=== PATIENT | female | born 1990 | race Caucasian/White ===

== ENCOUNTER 2017-07-01 14:10 | Emergency (ER) | payer BC, OTHER ==
[2017-07-01 14:20] VITALS: BP 149/89; PULSE 89; RESP 18; TEMP 97.8
[2017-07-01] MEDS ORDERED: Acetaminophen-Codeine 300-30mg TAB PO STA (14:22)
[2017-07-01] MEDS ORDERED: IBUPROFEN 600 MG TAB PO STA (14:22)
--- NOTE | 2017-07-01 14:22 | ED ---
Upper Extremity HPI - General Chief Complaint: Extremity Injury, Upper Stated Complaint: shoulder pain Time Seen by Provider: 07/01/17 14:14 Source: patient Mode of arrival: ambulatory Limitations: no limitations - History of Present Illness Initial Comments: 26-year-old female patient presents to emergency department today for evaluation of right shoulder pain. The patient states that approximately 1 hour prior to arrival she was toweling off after a shower when she felt her right shoulder partially dislocate. Patient states that she has had this happen to her numerous times in the past. She states this has happened at least once per year since 2008. She states that she was able to get the shoulder back in place on her own however it doesn't feel stable or normal. She is currently rating her pain at a 9 out of 10 on the pain scale. She denies any numbness or tingling to the arm or hand. Patient denies any headache , neck pain, back pain, chest pain, shortness of breath, dizziness, weakness, abdominal pain, nausea, vomiting, or difficulties with bowel movements or urination. - Related Data Allergies Allergy/AdvReac Type Severity Reaction Status Date / Time Penicillins Allergy Unknown Verified 07/01/17 14:29 Review of Systems ROS Statement: Those systems with pertinent positive or pertinent negative responses have been documented in the HPI. ROS Other: All systems not noted in ROS Statement are negative. Past Medical History Past Medical History: No Reported History History of Any Multi-Drug Resistant Organisms: None Reported Additional Past Surgical History / Comment(s): right shoulder repair Past Psychological History: No Psychological Hx Reported Smoking Status: Current every day smoker Past Alcohol Use History: None Reported Past Drug Use History: None Reported General Exam Limitations: no limitations General appearance: alert, in no apparent distress, other (This is a well- developed, well-nourished adult female patient in no acute distress. Vital signs upon presentation her temperature 97.8F, pulse 89, respirations 18, blood pressure 149/89, pulse ox 97% on room air.) Neck exam: Present: normal inspection, full ROM. Absent: tenderness, meningismus, lymphadenopathy Respiratory exam: Present: normal lung sounds bilaterally. Absent: respiratory distress, wheezes, rales, rhonchi, stridor Cardiovascular Exam: Present: regular rate, normal rhythm, normal heart sounds. Absent: systolic murmur, diastolic murmur, rubs, gallop, clicks Extremities exam: Present: normal inspection, full ROM, normal capillary refill , other (Skin to right shoulder is pink, warm, and dry. No obvious deformity. Skin to the right arm is pink, warm, and dry. Cap refill less than 3 seconds. Radial pulses 2+ and equal bilaterally.). Absent: tenderness, pedal edema, joint swelling, calf tenderness Back exam: Present: normal inspection. Absent: tenderness Neurological exam: Present: alert, oriented X3, CN II-XII intact Psychiatric exam: Present: normal affect, normal mood Skin exam: Present: warm, dry, intact, normal color. Absent: rash Course Vital Signs 07/01/17 14:17 Temperature 97.8 F Pulse Rate 89 Respiratory 18 Rate Blood Pressure 149/89 O2 Sat by Pulse 97 Oximetry Medical Decision Making - Medical Decision Making 26-year-old female patient presented to emergency department today after she dislocated her right shoulder. Patient states that she was able to get the shoulder back into place however continued to have pain. She states that the joint felt unstable. Physical exam is unremarkable. Joint spaces appear normal to palpation. X-ray showed no acute fracture or dislocation. Patient does have full range of motion of the shoulder however we will place her in a sling and have her follow-up with orthopedics for further evaluation. She is instructed to take ibuprofen and Tylenol for pain control. She is instructed to return here immediately for any new, worsening, or concerning symptoms. She verbalizes understanding and agrees with this plan. - Radiology Data Radiology results: report reviewed, image reviewed 3 views of the right shoulder are obtained and show no acute fracture or dislocation. The acromioclavicular and glenohumeral joint spaces appear within normal limits. The visualized ribs are intact and unremarkable. Impression by Dr. Anderson states no acute fracture or dislocation. Disposition Clinical Impression: Shoulder pain Disposition: HOME SELF-CARE Condition: Good Instructions: Shoulder Dislocation (ED) Additional Instructions: Wear splint until follow-up with orthopedics. Follow up with orthopedic physician for recheck in 1-2 days. Return here immediately for any new, worsening, or concerning symptoms. Referrals: Jami Gloria MD [Primary Care Provider] - 1-2 days Víctor Marie MD [STAFF PHYSICIAN] - 1-2 days Time of Disposition: 15:28
--- NOTE | 2017-07-01 14:57 | XR ---
EXAMINATION TYPE: XR shoulder complete RT DATE OF EXAM: 07/01/2017 CLINICAL HISTORY: pain TECHNIQUE: Three views of the right shoulder are obtained. COMPARISON: None FINDINGS: There is no acute fracture/dislocation evident. The acromioclavicular and glenohumeral gayle int spaces appear within normal limits. The visualized ribs are intact and unremarkable. IMPRESSION: 1. There is no acute fracture or dislocation. ICD 10 NO FRACTURE, INITIAL EVALUATION
== END 2017-07-01 15:40 | disposition home or self-care (01) ==
LOC: EC 14:10
DX: M25.511 Pain in right shoulder (principal); F17.200 Nicotine dependence, unspecified, uncomplicated; Z88.0 Allergy status to penicillin; Z98.890 Other specified postprocedural states; X58.XXXA Exposure to other specified factors, initial encounter; Y93.89 Activity, other specified
CPT/HCPCS: 99283

== ENCOUNTER 2018-04-11 16:10 | Emergency (ER) | payer BC, OTHER ==
[2018-04-11 16:43] VITALS: BP 121/90; PULSE 96; RESP 18; TEMP 98.1
[2018-04-11] MEDS ORDERED: IBUPROFEN 600 MG TAB PO STA (19:09)
--- NOTE | 2018-04-11 19:11 | XR ---
EXAMINATION TYPE: XR wrist complete LT DATE OF EXAM: 04/11/2018 COMPARISON: NONE HISTORY: Pain TECHNIQUE: 4 views FINDINGS: There is no fracture nor dislocation. Joint spaces are normal. Carpal bones are intact. IMPRESSION: Negative left wrist exam.
--- NOTE | 2018-04-11 19:12 | XR ---
EXAMINATION TYPE: XR hand complete LT DATE OF EXAM: 04/11/2018 COMPARISON: NONE HISTORY: Pain after falling TECHNIQUE: 3 views FINDINGS: Metacarpals are intact. I see no fracture nor dislocation. Joint spaces appear normal. IMPRESSION: Negative left hand exam.
--- NOTE | 2018-04-11 19:13 | XR ---
EXAMINATION TYPE: XR humerus LT DATE OF EXAM: 04/11/2018 COMPARISON: NONE HISTORY: Arm pain TECHNIQUE: 2 views FINDINGS: I see no fracture nor dislocation. Shoulder joint and elbow joint appear intact. Soft tissu es appear normal. IMPRESSION: Negative left humerus exam.
--- NOTE | 2018-04-11 19:13 | XR ---
EXAMINATION TYPE: XR knee complete LT DATE OF EXAM: 04/11/2018 COMPARISON: NONE HISTORY: Knee pain TECHNIQUE: 3 views FINDINGS: I see no fracture nor dislocation. Joint spaces are normal. There is no sign of any joint e ffusion. IMPRESSION: Negative left knee exam.
--- NOTE | 2018-04-11 19:33 | ED ---
General Adult HPI - General Chief complaint: Fall Stated complaint: ihs left side pain Time Seen by Provider: 04/11/18 17:45 Source: patient, RN notes reviewed Mode of arrival: ambulatory Limitations: no limitations - History of Present Illness Initial comments: 27-year-old female presents to the emergency department for a chief complaint of left arm and left knee pain x 2 hours. Patient states she was at work when she slipped on a wet floor and fell on her left arm and left knee. Patient denies hitting her head or neck. Patient denies falling on her left side or injuring her ribs. Patient denies any hip pain. Patient denies any loss of consciousness. Patient denies any dizziness preceding the fall. Patient states most of her pain is in the left upper arm. She has never had a serious injury to the arm before. Patient has no other complaints at this time including shortness of breath, chest pain, abdominal pain, nausea or vomiting, headache, or visual changes. - Related Data Previous Rx's Medication Instructions Recorded Ibuprofen [Motrin] 600 mg PO Q8HR PRN #20 tab 04/11/18 Allergies Allergy/AdvReac Type Severity Reaction Status Date / Time Penicillins Allergy Unknown Verified 04/11/18 16:44 Review of Systems ROS Statement: Those systems with pertinent positive or pertinent negative responses have been documented in the HPI. ROS Other: All systems not noted in ROS Statement are negative. Past Medical History Past Medical History: No Reported History History of Any Multi-Drug Resistant Organisms: None Reported Additional Past Surgical History / Comment(s): right shoulder repair Past Psychological History: No Psychological Hx Reported Smoking Status: Current every day smoker Past Alcohol Use History: None Reported Past Drug Use History: None Reported General Exam - General Exam Comments Initial Comments: Left arm: Full range of motion of the left wrist without tenderness. No scaphoid tenderness. No tenderness in the left hand and full range of motion of the left hand. Full range motion of the left elbow without tenderness. Patient has full range of motion of the left shoulder but does have tenderness to the proximal humerus. Capillary refill less than 2 seconds and radial pulse 2+. Sensation intact in the left upper extremity, fundraising specialist strength 5 out of 5. No contusions or signs of trauma in the left arm. Left knee: Full range motion of the left knee, patient ambulating on left knee without difficulty, sensation intact, pedal pulse 2+ and capillary refill less than 2 seconds. No evidence of a cellulitic infection or erythema. No contusions or signs of trauma Limitations: no limitations General appearance: alert, in no apparent distress Head exam: Present: atraumatic (no evidence of head trauma such as contusions or abrasions), normocephalic, normal inspection Eye exam: Present: normal appearance, PERRL, EOMI. Absent: scleral icterus, conjunctival injection ENT exam: Present: normal exam, mucous membranes moist Neck exam: Present: normal inspection, full ROM. Absent: tenderness (no cervical tenderness), meningismus, lymphadenopathy Respiratory exam: Present: normal lung sounds bilaterally. Absent: respiratory distress, wheezes, rales, rhonchi, stridor Cardiovascular Exam: Present: regular rate, normal rhythm, normal heart sounds. Absent: systolic murmur, diastolic murmur, rubs, gallop, clicks Neurological exam: Present: alert, oriented X3, CN II-XII intact, normal gait, other (GCS 15) Psychiatric exam: Present: normal affect, normal mood Course Vital Signs 04/11/18 16:40 Temperature 98.1 F Pulse Rate 96 Respiratory 18 Rate Blood Pressure 121/90 O2 Sat by Pulse 97 Oximetry Medical Decision Making - Medical Decision Making 27-year-old female presents to the emergency department for a chief complaint of fall on the left arm and knee. Patient did not hit her head and denies neck pain. No rib injury. Patient has full range of motion of all joints in the right arm as well as the right knee. No tenderness in the left wrist, elbow. Patient has tenderness to the proximal left humerus but no tenderness to the left shoulder, AC joint. Patient has no tenderness in the left knee. However she states that her knee does hurt. Patient is ambulating without difficulty in the emergency department. Discussed with patient that x-rays are likely not necessary as she has full range motion with minimal tenderness. However, mother states that they would like everything x-rayed including the entire left arm. Patient had previously denied any chance of however when she got to x-ray wanted a test so that was ordered and was negative. X- ray of the left knee negative for fracture. X-ray of the left wrist negative for fracture. x--ray of the left humerus negative for fracture x-ray of the left hand negative for fracture. Discussed possibility of occult fracture and to follow-up with primary care for repeat x-rays if symptoms do not resolve in 7 -10 days. Patient follow-up with primary care tomorrow anyway. She will take Motrin for pain and rest ice and elevate the left arm as well as left knee. She will return to the emergency Department if she has any worsening symptoms. - Lab Data Lab Results 04/11/18 Range/Units 18:30 Urine HCG, Qual Not Detected (Not Detectd) Disposition Clinical Impression: Fall Disposition: HOME SELF-CARE Condition: Good Instructions: RICE Therapy (ED) Additional Instructions: Please rest ice and elevate the left wrist elbow and shoulder as well as the left knee. Take Motrin and Tylenol for pain. Follow up with primary care in 1- 2 days. Return to the emergency department if you have any worsening symptoms. Prescriptions: Ibuprofen [Motrin] 600 mg PO Q8HR PRN #20 tab PRN Reason: Pain Is patient prescribed a controlled substance at d/c from ED?: No Referrals: Jami Gloria MD [Primary Care Provider] - 1-2 days Time of Disposition: 19:56
== END 2018-04-11 20:08 | disposition home or self-care (01) ==
LOC: EC 16:10
DX: M25.562 Pain in left knee (principal); M79.605 Pain in left leg; F17.200 Nicotine dependence, unspecified, uncomplicated; Z88.0 Allergy status to penicillin; W01.0XXA Fall on same level from slipping, tripping and stumbling without subsequent striking against object, initial encounter
CPT/HCPCS: 81025; 99283

== ENCOUNTER → 2018-04-14 | Outpatient (CLI) | payer OTHER ==
--- NOTE | 2018-04-14 11:48 | XR ---
EXAMINATION TYPE: XR Hip Complete LT DATE OF EXAM: 04/14/2018 CLINICAL HISTORY: pain TECHNIQUE: AP and frogleg views of the left hip are obtained. COMPARISON: None. FINDINGS: There is no acute fracture/dislocation evident. The joint space appears within normal li mits. The overlying soft tissue appears unremarkable. IMPRESSION: 1. There is no acute fracture or dislocation.ICD 10 NO FRACTURE, INITIAL EVALUATION
--- NOTE | 2018-04-14 11:49 | XR ---
EXAMINATION TYPE: XR pelvis complete DATE OF EXAM: 04/14/2018 CLINICAL HISTORY: pain TECHNIQUE: Single view the pelvis is submitted. FINDINGS: No evidence for fracture, dislocation or bony lesion. Joint spaces are well-preserved. S I joints appear symmetric. IMPRESSION: 1. No acute fracture or dislocation seen. ICD 10 NO FRACTURE, INITIAL EVALUATION
--- NOTE | 2018-04-14 11:51 | XR ---
EXAMINATION TYPE: XR elbow complete LT DATE OF EXAM: 04/14/2018 CLINICAL HISTORY: pain TECHNIQUE: Frontal, lateral and oblique images of the left elbow are obtained. COMPARISON: None. FINDINGS: There is no acute fracture/dislocation evident of the elbow. No abnormal fat pad signs ar e seen. The overlying soft tissue appears unremarkable. IMPRESSION: There is no acute fracture or dislocation of the elbow. ICD 10 NO FRACTURE, INITIAL EVALUATION
== END | disposition home or self-care (01) ==
LOC: RADXRMAIN 11:19
PROVIDERS: ATTEND Emergency Medicine
DX: S30.0XXA Contusion of lower back and pelvis, initial encounter (principal); M79.602 Pain in left arm
CPT/HCPCS: 73502

== ENCOUNTER 2018-08-04 17:35 | Emergency (ER) | payer BC ==
[2018-08-04] MEDS ORDERED: MORPHINE SULFATE 4 MG/ML SYRINGE IV STA (17:54)
[2018-08-04] MEDS ORDERED: ETOMIDATE 2 MG/ML 10 ML VIAL IVP STA (18:21)
--- NOTE | 2018-08-04 18:27 | ED ---
General Adult HPI <Sohan Neal - Last Filed: 08/04/18 19:12> - General Source: EMS, RN notes reviewed Mode of arrival: EMS Limitations: no limitations <Nadeem Ovalle - Last Filed: 08/04/18 19:39> - General Chief complaint: Extremity Injury, Upper Stated complaint: Shoulder Injury Time Seen by Provider: 08/04/18 17:38 - History of Present Illness Initial comments: Patient 27-year-old female presenting to the emergency room today by EMS, the chief complaint of pain to the right shoulder. She does admit that she was trying to put pressure on when her shoulder popped out. She does not that she' s had dislocations in the past. She states this feels safe. Patient did call EMS. EMS to get some pain medication. States cough. Patient does admit pain worse with any type of movement. Denies any other complaints or symptoms. Patient denies any recent fever, chills, shortness of breath, chest pain, back pain, abdominal pain, nausea or vomiting, numbness or tingling, headaches or visual changes, or any other complaints. (Nadeem Ovalle) - Related Data Home Medications Medication Instructions Recorded Confirmed metFORMIN HCL 1,000 mg PO HS 08/04/18 08/04/18 Previous Rx's Medication Instructions Recorded Ibuprofen [Motrin] 600 mg PO Q6HR PRN #30 day 08/04/18 Allergies Allergy/AdvReac Type Severity Reaction Status Date / Time Penicillins Allergy Rash/Hives Verified 08/04/18 18:01 Review of Systems ROS Other: All systems not noted in ROS Statement are negative. <Sohan Neal - Last Filed: 08/04/18 19:12> ROS Other: All systems not noted in ROS Statement are negative. <Nadeem Ovalle - Last Filed: 08/04/18 19:39> ROS Statement: Those systems with pertinent positive or pertinent negative responses have been documented in the HPI. Past Medical History Past Medical History: No Reported History History of Any Multi-Drug Resistant Organisms: None Reported Past Surgical History: Adenoidectomy, Tonsillectomy Additional Past Surgical History / Comment(s): right shoulder repair Past Psychological History: No Psychological Hx Reported Smoking Status: Current every day smoker Past Alcohol Use History: None Reported Past Drug Use History: None Reported <Nadeem Ovalle - Last Filed: 08/04/18 19:39> General Exam <Sohan Neal - Last Filed: 08/04/18 19:12> Limitations: no limitations <Nadeem Ovalle - Last Filed: 08/04/18 19:39> - General Exam Comments Initial Comments: General: The patient is awake and alert, in no distress, and does not appear acutely ill. Neck: The neck is supple, there is no tenderness or JVD. Cardiovascular: There is a regular rate and rhythm. No murmur, rub or gallop is appreciated. Respiratory: Lungs are clear to auscultation, respirations are non-labored, breath sounds are equal. No wheezes, stridor, rales, or rhonchi. Musculoskeletal: Patient does have an abnormal appearance of the right shoulder. She does show full range of motion of the right wrist able to extend and flex. Sensations intact. Radial pulse 2+ Neurological: A&O x 3. CN II-XII intact, There are no obvious motor or sensory deficits. Coordination appears grossly intact. Speech is normal. Skin: Skin is warm and dry and no rashes or lesions are noted. Psychiatric: Cooperative, appropriate mood & affect, normal judgment. (Nadeem Ovalle) Vital Signs 08/04/18 08/04/18 08/04/18 17:36 18:40 19:02 Temperature 98.3 F Pulse Rate 96 90 112 H Respiratory 18 20 22 Rate Blood Pressure 134/99 145/82 140/92 O2 Sat by Pulse 96 98 98 Oximetry 08/04/18 08/04/18 08/04/18 19:05 19:08 19:15 Temperature Pulse Rate 109 H 112 H 87 Respiratory 20 20 20 Rate Blood Pressure 152/86 154/96 135/88 O2 Sat by Pulse 98 100 99 Oximetry Procedures - Orthopedic Joint Reduction Joint #1 Consent Obtained: verbal consent Time Out Performed: Yes Side: right Joint Reduction Location: shoulder Analgesia: procedural sedation Shoulder Technique Used (if applicable): traction/counter-traction Post-Reduction Neuro Exam: intact Post-Reduction Vascular Exam: intact Post Reduction X-Ray Obtained: Yes Post Reduction X-Ray Results: reduced Splint Applied: Yes Patient Tolerated Procedure: well - Procedural Sedation Procedural Sedation Start Time: 19:05 Procedural Sedation Stop Time: 19:35 Indications: fracture/dislocation reduction ASA Class: I Preparation: clinical research monitor applied, pulse oximeter, capnometry used, supplemental O2 applied IV Etomidate Dose (mgs): 15 Complications: none <Sohan Neal - Last Filed: 08/04/18 19:12> Medical Decision Making <Sohan Nael - Last Filed: 08/04/18 19:12> <Nadeem Ovalle - Last Filed: 08/04/18 19:39> - Medical Decision Making I, Andriy Neal, personally saw and examined the patient. I have reviewed and agree with the PA findings, including all diagnostic interpretations and treatment plans as written unless otherwise stated. I was present for the sanchez portions of any procedures performed and the inclusive time noted for any critical care statement. (Sohan Neal) X-ray was reviewed did show a anterior shoulder dislocation. A conscious sedation was performed at bedside by attending physician Dr. Neal did reduce shoulder. Repeat x-ray was reviewed showing good reduction. Patient is currently awake doing well at this time feeling much better. Patient will be discharged home. Following up with orthopedics and using arm sling. (Nadeem Ovalle) Disposition <Sohan Neal - Last Filed: 08/04/18 19:12> Is patient prescribed a controlled substance at d/c from ED?: No Time of Disposition: 19:39 <Nadeem Ovalle - Last Filed: 08/04/18 19:39> Clinical Impression: Shoulder dislocation Disposition: HOME SELF-CARE Condition: Good Instructions: Shoulder Dislocation (ED) Additional Instructions: Please follow-up with orthopedics over the next 2 days. Please use arm sling when up and moving around. Please continue with ibuprofen for pain. Please return to emergency room for any other concerns. Prescriptions: Ibuprofen [Motrin] 600 mg PO Q6HR PRN #30 day PRN Reason: Pain Referrals: Jami Gloria MD [Primary Care Provider] - 1-2 days Víctor Marie MD [STAFF PHYSICIAN] - 1-2 days
--- NOTE | 2018-08-04 18:35 | XR ---
EXAMINATION TYPE: XR shoulder complete RT DATE OF EXAM: 08/04/2018 COMPARISON: NONE HISTORY: Shoulder dislocation TECHNIQUE: 3 views. FINDINGS: 3 views were obtained and show anterior dislocation of the humeral head. I see no fracture. Scapula a ppears intact. IMPRESSION: Anterior shoulder dislocation.
--- NOTE | 2018-08-04 19:24 | XR ---
EXAMINATION TYPE: XR shoulder limited RT DATE OF EXAM: 08/04/2018 COMPARISON: Today HISTORY: Post reduction TECHNIQUE: Single view. FINDINGS: There is anatomic reduction of the glenohumeral joint. I see no fracture. IMPRESSION: Anatomic reduction. No fracture seen.
[2018-08-04] MEDS ORDERED: KETOROLAC 30 MG/ML 1 ML VIAL IVP STA (19:37)
[2018-08-04 20:07] VITALS: BP 123/78; PULSE 74; RESP 18; TEMP 97.9
== END 2018-08-04 20:06 | disposition home or self-care (01) ==
LOC: EC 17:35
DX: S43.004A Unspecified dislocation of right shoulder joint, initial encounter (principal); F17.200 Nicotine dependence, unspecified, uncomplicated; Z98.890 Other specified postprocedural states; Z79.84 Long term (current) use of oral hypoglycemic drugs; Z88.0 Allergy status to penicillin; X58.XXXA Exposure to other specified factors, initial encounter
CPT/HCPCS: 73020; 73030; 99284; 23650; 99152; 99153; 96374; 96375; J2270; J1885

== ENCOUNTER 2019-06-13 01:13 | Emergency (ER) | payer BC ==
[2019-06-13 01:27] VITALS: RESP 18
[2019-06-13] MEDS ORDERED: KETOROLAC 30 MG/ML 1 ML VIAL IM STA (02:14)
[2019-06-13] MEDS ORDERED: HYDROcodone/APAP 7.5-325MG 1 EACH TAB PO ONE (02:14)
[2019-06-13] MEDS ORDERED: ACET/COD 300 MG/30 MG STARTER PACK 6 TAB BTL PO STA (02:15)
--- NOTE | 2019-06-13 02:17 | ED ---
Back Pain HPI - General Chief Complaint: Back Pain/Injury Stated Complaint: back pain Time Seen by Provider: 06/13/19 01:33 Source: patient Limitations: no limitations - History of Present Illness Initial Comments: 28 year old female with history of chronic low back pain presents emergency room for chief complaint of low back pain. Patient states she has had low back pain for the past 2 days. She denies any any trauma or specific lifting that causes pain states it began gradually. Patient states she is also currently menstruating. She states she feels that this is a compounding factor. Patient states at times the pain radiates on the left leg. Patient states she is experiencing before and sees a chiropractor. She denies a recent appointments. Patient denies loss of bowel bladder control urinary retention IV drug use fevers history of cancer. Patient denies dysuria or urgency, hematuria or history of kidney stones. Denies flank pain. Denies abdominal pain Patient is able to ambulate however she states this increased the pain. Patient states she took leftover Vicodin she had at the home and this did not seem to help. Patient states that she difficulty finding a comfortable position to sleep she presents to the emergency department for evaluation. Upon arrival patient appears well signs of acute distress. - Related Data Home Medications Medication Instructions Recorded Confirmed metFORMIN HCL 1,000 mg PO HS 08/04/18 08/04/18 Previous Rx's Medication Instructions Recorded Ibuprofen [Motrin] 600 mg PO Q6HR PRN #30 day 08/04/18 Allergies Allergy/AdvReac Type Severity Reaction Status Date / Time Penicillins Allergy Rash/Hives Verified 08/04/18 18:01 Review of Systems ROS Statement: Those systems with pertinent positive or pertinent negative responses have been documented in the HPI. ROS Other: All systems not noted in ROS Statement are negative. Past Medical History Past Medical History: No Reported History History of Any Multi-Drug Resistant Organisms: None Reported Past Surgical History: Adenoidectomy, Tonsillectomy Additional Past Surgical History / Comment(s): right shoulder repair Past Psychological History: No Psychological Hx Reported Smoking Status: Current every day smoker Past Alcohol Use History: None Reported Past Drug Use History: None Reported General Exam - General Exam Comments Initial Comments: General: The patient is awake and alert, in no distress, and does not appear acutely ill. Eye: Pupils are equal, round and reactive to light, extra-ocular movements are intact. No nystagmus. There is normal conjunctiva bilaterally. No signs of icterus. Cardiovascular: There is a regular rate and rhythm. No murmur, rub or gallop is appreciated. Respiratory: Lungs are clear to auscultation, respirations are non-labored, breath sounds are equal. No wheezes, stridor, rales, or rhonchi. Gastrointestinal: Soft, non-distended, non-tender abdomen without masses or organomegaly noted. There is no rebound or guarding present. No CVA tenderness. Musculoskeletal: Mild lumbar midline and paravertebral tenderness. +2 patellar reflexes. No hyperreflexia myoclonus noted. Full range of motion of the lower extremities bilaterally with full strength sensation intact of the lower extremities equal and comparison bilaterally including saddle region. Strong +2 dorsalis pedis pulses. Patient is able to heel and toe walk. Ambulate without difficulty. Neurological: A&O x 3. CN II-XII intact grossly, There are no obvious motor or sensory deficits. Coordination appears grossly intact. Speech is normal. Skin: Skin is warm and dry and no rashes or lesions are noted. Psychiatric: Cooperative, appropriate mood & affect, normal judgment. Limitations: no limitations Course Vital Signs 06/13/19 06/13/19 01:23 02:31 Temperature 97.9 F 98 F Pulse Rate 82 80 Respiratory 18 18 Rate Blood Pressure 142/76 136/80 O2 Sat by Pulse 98 94 L Oximetry Medical Decision Making - Medical Decision Making Well appearing 28yo female presenting for evaluation of acute on chronic low back pain. Patient currently menstruating denies . Patient took Vicodin at home earlier today states it did not alleviate pain. Patient has no alarming physical examination findings are history findings. Strength intact as well as sensation. No history of trauma. Patient was given a [place] in the emergency department as well as toradol for pain relief. At this time i do feel patient is stable for discharge with outpatient orthopedic f/u. return parameters discussed and patient discharged appearing well. Disposition Clinical Impression: Acute exacerbation of chronic low back pain Disposition: HOME SELF-CARE Condition: Good Instructions (If sedation given, give patient instructions): Acute Low Back Pain (ED) Additional Instructions: Please use medication as discussed. Please follow-up with family doctor in the next 2 days. Please return to emergency room if the symptoms increase or worsen or for any other concerns. Is patient prescribed a controlled substance at d/c from ED?: No Referrals: Jami Gloria MD [Primary Care Provider] - 1-2 days Madeline Boss DO [Doctor of Osteopathic Medicine] - 1-2 days Time of Disposition: 02:16
[2019-06-13 02:33] VITALS: BP 136/80; PULSE 80; TEMP 98
== END 2019-06-13 02:27 | disposition home or self-care (01) ==
LOC: EC 01:13
DX: G89.29 Other chronic pain (principal); M54.5 Low back pain; M79.605 Pain in left leg; F17.200 Nicotine dependence, unspecified, uncomplicated; Z88.0 Allergy status to penicillin
CPT/HCPCS: 99283; 96372; J1885

== ENCOUNTER 2021-03-09 21:29 | Emergency (ER) | payer OTHER ==
[2021-03-09 21:48] VITALS: RESP 18; TEMP 97.8
[2021-03-09 21:50] LABS: Glucose,Whole Blood 319 mg/dL (75-99)
[2021-03-09] MEDS ORDERED: ONDANSETRON 4 MG/2 ML VIAL IVP STA (22:08)
[2021-03-09] MEDS ORDERED: SODIUM CHLORIDE 0.9% 1,000 ML IV STA ×2 (22:08→22:53)
--- NOTE | 2021-03-09 22:08 | ED ---
Nausea/Vomiting/Diarrhea HPI - General Chief complaint: Abdominal Pain Stated complaint: vomiting Time Seen by Provider: 03/09/21 22:04 Source: patient, RN notes reviewed, old records reviewed Mode of arrival: ambulatory Limitations: no limitations - History of Present Illness Initial comments: This is a 22-year-old female to the ER for evaluation patient has persistent nausea vomiting and diarrhea who has severe dizziness and the room spinning. MD complaint: nausea, vomiting -: days(s) Description of Vomiting: watery Description of Diarrhea: water Associated Abdominal Pain: Yes Location: diffuse Radiation: none, scalp Severity: moderate Severity scale (1-10): 4 Consistency: constant Improves with: none Worsens with: none Associated Symptoms: denies other symptoms - Related Data Home Medications Medication Instructions Recorded Confirmed metFORMIN HCL 1,000 mg PO HS 08/04/18 08/04/18 Previous Rx's Medication Instructions Recorded Ibuprofen [Motrin] 600 mg PO Q6HR PRN #30 day 08/04/18 Meclizine [Antivert] 25 mg PO TID #15 tab 03/09/21 Allergies Allergy/AdvReac Type Severity Reaction Status Date / Time Penicillins Allergy Rash/Hives Verified 03/09/21 21:47 Review of Systems ROS Statement: Those systems with pertinent positive or pertinent negative responses have been documented in the HPI. ROS Other: All systems not noted in ROS Statement are negative. Past Medical History Past Medical History: No Reported History History of Any Multi-Drug Resistant Organisms: None Reported Past Surgical History: Adenoidectomy, Tonsillectomy Additional Past Surgical History / Comment(s): right shoulder repair Past Psychological History: No Psychological Hx Reported Smoking Status: Never smoker Past Alcohol Use History: None Reported Past Drug Use History: None Reported General Exam Limitations: no limitations Course Vital Signs 03/09/21 03/09/21 03/10/21 21:44 23:30 00:10 Temperature 97.8 F Pulse Rate 122 H 102 H 100 Respiratory 18 18 Rate Blood Pressure 142/88 142/95 O2 Sat by Pulse 95 98 98 Oximetry - Reevaluation(s) Reevaluation #1: 03/10/21 03:44 Medical record is reviewed Reevaluation #2: 03/10/21 03:44 Patient is able to amply without ataxia Reevaluation #3: 03/10/21 03:44 Patient informed of results and questions answered Reevaluation #4: 07/18/21 03:44 Patient feels good for discharge home Medical Decision Making - Medical Decision Making 22 female with severe nausea vomiting found of vertigo here in the ER given exercises feeling improved and patient can be discharged home - Lab Data Result diagrams: 03/09/21 22:27 03/09/21 22:27 Lab Results 03/09/21 03/09/21 03/09/21 Range/Units 21:49 22:27 22:27 WBC 16.5 H (3.8-10.6) k/uL RBC 4.91 (3.80-5.40) m/uL Hgb 14.2 (11.4-16.0) gm/dL Hct 42.8 (34.0-46.0) % MCV 87.0 (80.0-100.0) fL MCH 29.0 (25.0-35.0) pg MCHC 33.3 (31.0-37.0) g/dL RDW 13.4 (11.5-15.5) % Plt Count 366 (150-450) k/uL MPV 7.7 Neutrophils % 88 % Lymphocytes % 9 % Monocytes % 2 % Eosinophils % 1 % Basophils % 0 % Neutrophils # 14.4 H (1.3-7.7) k/uL Lymphocytes # 1.5 (1.0-4.8) k/uL Monocytes # 0.3 (0-1.0) k/uL Eosinophils # 0.1 (0-0.7) k/uL Basophils # 0.1 (0-0.2) k/uL PT 10.1 (9.0-12.0) sec INR 0.9 (<1.2) APTT 21.1 L (22.0-30.0) sec Sodium (137-145) mmol/L Potassium (3.5-5.1) mmol/L Chloride (98-107) mmol/L Carbon Dioxide (22-30) mmol/L Anion Gap mmol/L BUN (7-17) mg/dL Creatinine (0.52-1.04) mg/dL Est GFR (CKD-EPI)AfAm (>60 ml/min/1.73 sqM) Est GFR (CKD-EPI)NonAf (>60 ml/min/1.73 sqM) Glucose (74-99) mg/dL POC Glucose (mg/dL) 319 H (75-99) mg/dL POC Glu Can Sorter Christopher Castrejon Lactic Ac Sepsis Rflx Plasma Lactic Acid Omer (0.7-2.0) mmol/L Calcium (8.4-10.2) mg/dL Phosphorus (2.5-4.5) mg/dL Magnesium (1.6-2.3) mg/dL Total Bilirubin (0.2-1.3) mg/dL AST (14-36) U/L ALT (4-34) U/L Alkaline Phosphatase (38-126) U/L Creatine Kinase (30-135) U/L Troponin I (0.000-0.034) ng/mL NT-Pro-B Natriuret Pep pg/mL Total Protein (6.3-8.2) g/dL Albumin (3.5-5.0) g/dL HCG, Qual Urine Color Urine Appearance (Clear) Urine pH (5.0-8.0) Ur Specific Pe Ell (1.001-1.035) Urine Protein (Negative) Urine Glucose (UA) (Negative) Urine Ketones (Negative) Urine Blood (Negative) Urine Nitrite (Negative) Urine Bilirubin (Negative) Urine Urobilinogen (<2.0) mg/dL Ur Leukocyte Esterase (Negative) Urine RBC (0-5) /hpf Urine WBC (0-5) /hpf Ur Squamous Epith Cells (0-4) /hpf 03/09/21 03/09/21 03/09/21 Range/Units 22:27 22:27 22:27 WBC (3.8-10.6) k/uL RBC (3.80-5.40) m/uL Hgb (11.4-16.0) gm/dL Hct (34.0-46.0) % MCV (80.0-100.0) fL MCH (25.0-35.0) pg MCHC (31.0-37.0) g/dL RDW (11.5-15.5) % Plt Count (150-450) k/uL MPV Neutrophils % % Lymphocytes % % Monocytes % % Eosinophils % % Basophils % % Neutrophils # (1.3-7.7) k/uL Lymphocytes # (1.0-4.8) k/uL Monocytes # (0-1.0) k/uL Eosinophils # (0-0.7) k/uL Basophils # (0-0.2) k/uL PT (9.0-12.0) sec INR (<1.2) APTT (22.0-30.0) sec Sodium 137 (137-145) mmol/L Potassium 4.8 (3.5-5.1) mmol/L Chloride 102 (98-107) mmol/L Carbon Dioxide 18 L (22-30) mmol/L Anion Gap 17 mmol/L BUN 14 (7-17) mg/dL Creatinine 0.54 (0.52-1.04) mg/dL Est GFR (CKD-EPI)AfAm >90 (>60 ml/min/1.73 sqM) Est GFR (CKD-EPI)NonAf >90 (>60 ml/min/1.73 sqM) Glucose 340 H (74-99) mg/dL POC Glucose (mg/dL) (75-99) mg/dL POC Glu Can Sorter ID Lactic Ac Sepsis Rflx Plasma Lactic Acid Omer 3.2 H* (0.7-2.0) mmol/L Calcium 9.7 (8.4-10.2) mg/dL Phosphorus 4.6 H (2.5-4.5) mg/dL Magnesium 1.4 L (1.6-2.3) mg/dL Total Bilirubin 0.4 (0.2-1.3) mg/dL AST 28 (14-36) U/L ALT 22 (4-34) U/L Alkaline Phosphatase 103 (38-126) U/L Creatine Kinase 77 (30-135) U/L Troponin I <0.012 (0.000-0.034) ng/mL NT-Pro-B Natriuret Pep pg/mL Total Protein 7.4 (6.3-8.2) g/dL Albumin 4.6 (3.5-5.0) g/dL HCG, Qual Not Detected Urine Color Urine Appearance (Clear) Urine pH (5.0-8.0) Ur Specific Pe Ell (1.001-1.035) Urine Protein (Negative) Urine Glucose (UA) (Negative) Urine Ketones (Negative) Urine Blood (Negative) Urine Nitrite (Negative) Urine Bilirubin (Negative) Urine Urobilinogen (<2.0) mg/dL Ur Leukocyte Esterase (Negative) Urine RBC (0-5) /hpf Urine WBC (0-5) /hpf Ur Squamous Epith Cells (0-4) /hpf 03/09/21 03/09/21 03/09/21 Range/Units 22:27 22:31 22:50 WBC (3.8-10.6) k/uL RBC (3.80-5.40) m/uL Hgb (11.4-16.0) gm/dL Hct (34.0-46.0) % MCV (80.0-100.0) fL MCH (25.0-35.0) pg MCHC (31.0-37.0) g/dL RDW (11.5-15.5) % Plt Count (150-450) k/uL MPV Neutrophils % % Lymphocytes % % Monocytes % % Eosinophils % % Basophils % % Neutrophils # (1.3-7.7) k/uL Lymphocytes # (1.0-4.8) k/uL Monocytes # (0-1.0) k/uL Eosinophils # (0-0.7) k/uL Basophils # (0-0.2) k/uL PT (9.0-12.0) sec INR (<1.2) APTT (22.0-30.0) sec Sodium (137-145) mmol/L Potassium (3.5-5.1) mmol/L Chloride (98-107) mmol/L Carbon Dioxide (22-30) mmol/L Anion Gap mmol/L BUN (7-17) mg/dL Creatinine (0.52-1.04) mg/dL Est GFR (CKD-EPI)AfAm (>60 ml/min/1.73 sqM) Est GFR (CKD-EPI)NonAf (>60 ml/min/1.73 sqM) Glucose (74-99) mg/dL POC Glucose (mg/dL) (75-99) mg/dL POC Glu Can Sorter ID Lactic Ac Sepsis Rflx Y Plasma Lactic Acid Omer (0.7-2.0) mmol/L Calcium (8.4-10.2) mg/dL Phosphorus (2.5-4.5) mg/dL Magnesium (1.6-2.3) mg/dL Total Bilirubin (0.2-1.3) mg/dL AST (14-36) U/L ALT (4-34) U/L Alkaline Phosphatase (38-126) U/L Creatine Kinase (30-135) U/L Troponin I (0.000-0.034) ng/mL NT-Pro-B Natriuret Pep 50 pg/mL Total Protein (6.3-8.2) g/dL Albumin (3.5-5.0) g/dL HCG, Qual Urine Color Light Yellow Urine Appearance Clear (Clear) Urine pH 6.0 (5.0-8.0) Ur Specific Pe Ell 1.022 (1.001-1.035) Urine Protein 2+ H (Negative) Urine Glucose (UA) 4+ H (Negative) Urine Ketones 4+ H (Negative) Urine Blood Small H (Negative) Urine Nitrite Negative (Negative) Urine Bilirubin Negative (Negative) Urine Urobilinogen <2.0 (<2.0) mg/dL Ur Leukocyte Esterase Negative (Negative) Urine RBC 2 (0-5) /hpf Urine WBC 2 (0-5) /hpf Ur Squamous Epith Cells 4 (0-4) /hpf - EKG Data -: EKG Interpreted by Me (EKG shows sinus tachycardia 102 OK 150 QRS 82 QTC 479) Disposition Clinical Impression: Vertigo, Nausea & vomiting Disposition: HOME SELF-CARE Condition: Good Instructions (If sedation given, give patient instructions): Vertigo (ED) Prescriptions: Meclizine [Antivert] 25 mg PO TID #15 tab Is patient prescribed a controlled substance at d/c from ED?: No Referrals: Noel Fisher DO [Primary Care Provider] - 1-2 days
[2021-03-09 22:37] LABS: Basophils # (A) 0.1 k/uL (0-0.2); Basophils % (A) 0 %; Eosinophils # (A) 0.1 k/uL (0-0.7); Eosinophils % (A) 1 %; HCT 42.8 % (34.0-46.0); HGB 14.2 gm/dL (11.4-16.0); Lymphocytes # (A) 1.5 k/uL (1.0-4.8); Lymphocytes % (A) 9 %; MCHC 33.3 g/dL (31.0-37.0); Mean Platelet Volume 7.7; Monocytes # (A) 0.3 k/uL (0-1.0); Monocytes % (A) 2 %; Neutrophils # (A) 14.4 k/uL (1.3-7.7); Neutrophils % (A) 88 %; Platelet Count 366 k/uL (150-450); RBC 4.91 m/uL (3.80-5.40); RDW 13.4 % (11.5-15.5); WBC 16.5 k/uL (3.8-10.6)
[2021-03-09 22:46] LABS: Potassium 4.8 mmol/L (3.5-5.1)
[2021-03-09 22:47] LABS: ALT 22 U/L (4-34); AST 28 U/L (14-36); African American GFR (CKD) >90 (>60 ml/min/1.73 sqM); Albumin 4.6 g/dL (3.5-5.0); Alkaline Phosphatase 103 U/L (38-126); Anion Gap 17 mmol/L; Blood Urea Nitrogen 14 mg/dL (7-17); Calcium 9.7 mg/dL (8.4-10.2); Carbon Dioxide 18 mmol/L (22-30); Chloride 102 mmol/L (98-107); Creatine Kinase 77 U/L (30-135); Glucose 340 mg/dL (74-99); Magnesium 1.4 mg/dL (1.6-2.3); Non-African American GFR(CKD) >90 (>60 ml/min/1.73 sqM); Phosphorus 4.6 mg/dL (2.5-4.5); Sodium 137 mmol/L (137-145); Total Bilirubin 0.4 mg/dL (0.2-1.3); Total Protein 7.4 g/dL (6.3-8.2)
[2021-03-09 22:48] LABS: Appearance,Urine Clear (Clear); Bilirubin,Urine Negative (Negative); Blood,Urine Small (Negative); Color,Urine Light Yellow; Glucose,Urine (UA) 4+ (Negative); Leukocyte Esterase,Urine Negative (Negative); Nitrite,Urine Negative (Negative); Protein,Urine 2+ (Negative); RBC,Urine 2 /hpf (0-5); Specific Gravity,Urine 1.022 (1.001-1.035); Squamous Epithelial Cell,Urine 4 /hpf (0-4); Urobilinogen,Urine <2.0 mg/dL (<2.0); WBC,Urine 2 /hpf (0-5)
[2021-03-09 22:53] LABS: Ketones,Urine 4+ (Negative)
[2021-03-09] MEDS ORDERED: diphenhydrAMINE 50 MG/ML 1 ML VIAL IVP STA (22:53)
[2021-03-09 22:57] LABS: INR 0.9 (<1.2); Prothrombin Time 10.1 sec (9.0-12.0)
[2021-03-09 22:58] LABS: Partial Thromboplastin Time 21.1 sec (22.0-30.0)
[2021-03-09 23:03] LABS: HCG,Qualitative Serum Not Detected
[2021-03-09] MEDS ORDERED: MECLIZINE 12.5 MG TAB PO STA (23:45)
[2021-03-09] MEDS ORDERED: ONDANSETRON 4 MG ODT STARTER PACK 2 TAB BTL PO STA (23:45)
[2021-03-10 00:11] VITALS: BP 142/95; PULSE 100
== END 2021-03-10 00:14 | disposition home or self-care (01) ==
LOC: EC 21:29
DX: R42 Dizziness and giddiness (principal); R11.2 Nausea with vomiting, unspecified; Z79.1 Long term (current) use of non-steroidal anti-inflammatories (NSAID); Z79.84 Long term (current) use of oral hypoglycemic drugs; Z88.0 Allergy status to penicillin
CPT/HCPCS: 36415; 93005; 83880; 80053; 82550; 83605; 83735; 84100; 84484; 85025; 85610; 85730; 81001; 84703; 96374; 96375; 96361 ×2; 99284; J1200; J2405; S0119